=== PATIENT | male | born 1975 | race Caucasian/White ===

== ENCOUNTER 2016-09-28 11:09 | Emergency (ER) | payer OTHER ==
[~2016-09-28] VITALS: Ht 182.8 cm; Wt 102.1 kg
[~2016-09-28 11:09] MED LIST: CLINDAMYCIN150 MG PO; VITAMIN D1000 IU PO
[2016-09-28] MEDS ORDERED: HYDROXYZINE PAM25 M1 PO (11:13)
[2016-09-28] MEDS ORDERED: 'XANAX1 MG PO (11:13)
[2016-09-28] MEDS ORDERED: QUETIAPINE FUM300 M1 PO (11:13)
[2016-09-28] MEDS ORDERED: VENLAFAXINE H37.5 M5 PO (11:13)
[2016-09-28 11:42] LABS: BASO % 0.3 % (0.0-1.0); EOS # 0.1 10*3/uL (0.0-0.4); EOS % 1.1 % (1.0-4.0); HEMATOCRIT 47.5 % (42.0-52.0); LYMPH # 1.7 10*3/uL (1.3-4.4); LYMPH % 21.1 % (27.0-41.0); MEAN CELL VOLUME 92.8 fl (80.0-94.0); MEAN CORPUSCULAR HGB 31.3 pg (27.0-31.0); MEAN CORPUSCULAR HGB CONC 33.7 g/dl (33.0-37.0); MEAN PLATELET VOLUME 10.4 fl (9.6-12.3); MONO # 0.6 10*3/uL (0.1-1.0); MONO % 7.6 % (3.0-9.0); NEUT # 5.5 10*3/uL (2.3-7.9); NEUT % 69.5 % (47.0-73.0); PLATELET COUNT AUTOMATED 284 10*3/uL (130-400); RED BLOOD COUNT 5.12 10*6/uL (4.50-5.90); RED CELL DISTRI WIDTH 12.1 % (0-14.5); WHITE BLOOD COUNT 7.9 10*3/uL (4.8-10.8)
[2016-09-28 11:51] LABS: PROTHROMBIN TIME 10.4 SECONDS (9.0-12.4)
[2016-09-28 11:58] LABS: ALBUMIN 3.6 gm/dl (3.1-4.5); ALKALINE PHOSPHATASE 88 U/L (45-117); BILIRUBIN, TOTAL 0.5 mg/dl (0.2-1.0); BUN 14 mg/dl (7-24); CARBON DIOXIDE 26 mmol/L (21-32); CHLORIDE 109 mmol/L (98-107); CPK 117 U/L (39-308); EST GLOM FILT AFRICAN AMERICAN > 60 ml/min; GLUCOSE 97 mg/dL (65-99); POTASSIUM 4.2 mmol/L (3.5-5.1); SGOT/AST 14 IU/L (3-35); SGPT/ALT 18 U/L (12-78); SODIUM 141 mmol/L (136-145); TOTAL PROTEIN 7.3 gm/dL (6.4-8.2)
[2016-09-28 11:59] LABS: CKMB 0.6 ng/ml (0.5-3.6)
[2016-09-28 12:07] LABS: C-REACTIVE PROTEIN < 0.29 MG/DL (0-0.3); TROPONIN I < 0.015 ng/ml (<0.045)
[2016-09-28 13:37] LABS: BILIRUBIN NEGATIVE (NEGATIVE); BLOOD 1+ (NEGATIVE); CLARITY CLEAR (CLEAR); COLOR YELLOW (YELLOW); GLUCOSE NEGATIVE (NEGATIVE); KETONE NEGATIVE (NEGATIVE); LEUKO ESTERASE NEGATIVE (NEGATIVE); NITRITE NEGATIVE (NEGATIVE); PROTEIN NEGATIVE (NEGATIVE); UROBILINOGEN 0.2 E.U./dl (0.2-1.0)
[2016-09-28 13:42] LABS: BACTERIA TRACE
[2016-09-28 13:43] LABS: EPITHELIAL CELLS 0-2; RBC 21-30 rbc/hpf (0-2); WBC 0-2 wbc/hpf (0-5)
[2016-09-28] MEDS ORDERED: BACTRIM 400 MG-1 TAB PO (14:23)
[2016-09-28] MEDS ORDERED: KETOROLAC10 MG PO (14:23)
== END 2016-09-28 14:49 | disposition home or self-care (01) ==
LOC: ED 11:09
PROVIDERS: Internal Medicine
DX: B34.9 Viral infection, unspecified (principal); R63.0 Anorexia; R11.0 Nausea; R19.7 Diarrhea, unspecified; R53.1 Weakness; R42 Dizziness and giddiness; R10.12 Left upper quadrant pain; R68.83 Chills (without fever); F17.200 Nicotine dependence, unspecified, uncomplicated; Z79.899 Other long term (current) drug therapy

== ENCOUNTER → 2017-01-19 | Outpatient (CLI) | payer OTHER ==
[~2017-01-19] MED LIST changes: +'XANAX1 MG PO; +BACTRIM 400 MG-1 TAB PO; +HYDROXYZINE PAM25 M1 PO; +KETOROLAC10 MG PO; +QUETIAPINE FUM300 M1 PO; +VENLAFAXINE H37.5 M5 PO
[2017-01-19 21:13] LABS: ALBUMIN 4.2 gm/dl (3.1-4.5); BILIRUBIN, DIRECT 0.1 mg/dL (0.0-0.2); TOTAL PROTEIN 7.6 gm/dL (6.4-8.2)
== END | disposition home or self-care (01) ==
LOC: LAB 20:12
PROVIDERS: Internal Medicine Gastroenterology
DX: Z11.59 Encounter for screening for other viral diseases (principal); R10.11 Right upper quadrant pain

== ENCOUNTER → 2017-03-03 | Outpatient (CLI) | payer OTHER | END | disposition home or self-care (01) | LOC: LAB 10:52 | DX: E29.1 Testicular hypofunction (principal) ==

== ENCOUNTER 2017-04-09 15:45 | Emergency (ER) | payer OTHER ==
[~2017-04-09] VITALS: Ht 182.8 cm; Wt 107.5 kg
[2017-04-09] MEDS ORDERED: CYCLOBENZAPRINE5 M3 PO (19:33)
== END 2017-04-09 20:01 | disposition home or self-care (01) ==
LOC: ED 15:45
DX: S16.1XXA Strain of muscle, fascia and tendon at neck level, initial encounter (principal); S70.01XA Contusion of right hip, initial encounter; S40.011A Contusion of right shoulder, initial encounter; F10.10 Alcohol abuse, uncomplicated; Z79.899 Other long term (current) drug therapy; V43.12XA Car passenger injured in collision with other type car in nontraffic accident, initial encounter; Y93.89 Activity, other specified; Y92.89 Other specified places as the place of occurrence of the external cause; Y99.8 Other external cause status

== ENCOUNTER → 2018-05-04 | Outpatient (CLI) | payer OTHER ==
[~2018-05-04] MED LIST changes: +CYCLOBENZAPRINE5 M3 PO; +MEDROL DOSEPAK4 MG PO; +NAPROSYN500 MG PO; +PREDNISONE20 M1 PO; +PROAIR HFA8.5 GM INH; +ROBAXIN500 M1 PO; +TESSALON PERLE100 M1 PO; +ZITHROMAX250 MG PO; +ZOFRAN4 MG PO
== END | disposition home or self-care (01) ==
LOC: US 16:13
DX: M25.571 Pain in right ankle and joints of right foot (principal); M25.572 Pain in left ankle and joints of left foot; R60.0 Localized edema

== ENCOUNTER 2018-05-27 17:37 | Emergency (ER) | payer OTHER ==
[~2018-05-27] VITALS: Wt 115.7 kg
[~2018-05-27 17:37] MED LIST changes: -PREDNISONE20 M1 PO; -PROAIR HFA8.5 GM INH; -TESSALON PERLE100 M1 PO; -ZITHROMAX250 MG PO; -ZOFRAN4 MG PO
[2018-05-27 18:39] LABS: BASO % 0.3 % (0.0-1.0); EOS # 0.1 10*3/uL (0.0-0.4); EOS % 0.9 % (1.0-4.0); HEMATOCRIT 49.1 % (42.0-52.0); HEMOGLOBIN 16.8 g/dl (14.0-18.0); LYMPH # 2.2 10*3/uL (1.3-4.4); LYMPH % 20.6 % (27.0-41.0); MEAN CELL VOLUME 95.2 fl (80.0-94.0); MEAN CORPUSCULAR HGB 32.6 pg (27.0-31.0); MEAN CORPUSCULAR HGB CONC 34.2 g/dl (33.0-37.0); MEAN PLATELET VOLUME 10.9 fl (9.6-12.3); MONO # 0.9 10*3/uL (0.1-1.0); NEUT # 7.4 10*3/uL (2.3-7.9); NEUT % 69.7 % (47.0-73.0); PLATELET COUNT AUTOMATED 251 10*3/uL (130-400); RED BLOOD COUNT 5.16 10*6/uL (4.50-5.90); RED CELL DISTRI WIDTH 12.4 % (0-14.5); WHITE BLOOD COUNT 10.7 10*3/uL (4.8-10.8)
[2018-05-27 19:09] LABS: ALBUMIN 3.3 gm/dl (3.1-4.5); ALKALINE PHOSPHATASE 68 U/L (45-117); BUN 11 mg/dl (7-24); CHLORIDE 107 mmol/L (98-107); CREATININE 1.03 mg/dL (0.70-1.30); POTASSIUM 3.8 mmol/L (3.5-5.1); SGOT/AST 23 IU/L (3-35); SGPT/ALT 43 U/L (12-78); SODIUM 141 mmol/L (136-145); TOTAL PROTEIN 6.9 gm/dL (6.4-8.2)
[2018-05-27 19:12] LABS: LIPASE 93 U/L (73-393)
[2018-05-27] MEDS ORDERED: TESSALON PERLE100 M1 PO (19:52)
[2018-05-27] MEDS ORDERED: ZOFRAN4 MG PO (19:52)
[2018-05-27] MEDS ORDERED: PROAIR HFA8.5 GM INH (19:52)
[2018-05-27] MEDS ORDERED: PREDNISONE20 M1 PO (19:53)
[2018-05-27] MEDS ORDERED: ZITHROMAX250 MG PO (19:53)
== END 2018-05-27 20:08 | disposition home or self-care (01) ==
LOC: ED 17:37
PROVIDERS: Physician Assistant
DX: B34.9 Viral infection, unspecified (principal); J20.9 Acute bronchitis, unspecified; F17.200 Nicotine dependence, unspecified, uncomplicated; Z88.0 Allergy status to penicillin; Z88.6 Allergy status to analgesic agent; Z79.899 Other long term (current) drug therapy; Z79.2 Long term (current) use of antibiotics

== ENCOUNTER 2019-03-01 14:45 | Emergency (ER) | payer OTHER ==
[~2019-03-01] VITALS: Ht 182.8 cm; Wt 95.3 kg
[~2019-03-01 14:45] MED LIST changes: +PREDNISONE20 M1 PO; +PROAIR HFA8.5 GM INH; +TESSALON PERLE100 M1 PO; +ZITHROMAX250 MG PO; +ZOFRAN4 MG PO
[2019-03-01] MEDS ORDERED: Motrin,Rufen800 MG PO (15:04)
[2019-03-01] MEDS ORDERED: CLINDAMYCIN HC300 MG PO (15:05)
[2019-03-02] MEDS ORDERED: XANAX1 MG PO (16:48)
[2019-03-02] MEDS ORDERED: MINIPRESS5 M1 PO (16:55)
== END 2019-03-01 15:29 | disposition home or self-care (01) ==
LOC: ED 14:45
DX: K02.9 Dental caries, unspecified (principal); Z88.0 Allergy status to penicillin; Z88.6 Allergy status to analgesic agent; Z88.8 Allergy status to other drugs, medicaments and biological substances; Z79.899 Other long term (current) drug therapy; Z79.2 Long term (current) use of antibiotics

== ENCOUNTER 2019-03-02 16:29 | Emergency (ER) | payer MEDICAID ==
[~2019-03-02] VITALS: Wt 88.0 kg
[~2019-03-02 16:29] MED LIST changes: +CLINDAMYCIN HC300 MG PO; +Motrin,Rufen800 MG PO
[2019-03-02] MEDS ORDERED: XANAX1 MG PO (16:48)
[2019-03-02] MEDS ORDERED: MINIPRESS5 M1 PO (16:55)
== END 2019-03-02 17:15 | disposition home or self-care (01) ==
LOC: ED 16:29
DX: F43.10 Post-traumatic stress disorder, unspecified (principal); F41.1 Generalized anxiety disorder; Z76.0 Encounter for issue of repeat prescription; I10 Essential (primary) hypertension; G40.909 Epilepsy, unspecified, not intractable, without status epilepticus; Z88.0 Allergy status to penicillin; Z88.6 Allergy status to analgesic agent; Z88.8 Allergy status to other drugs, medicaments and biological substances; Z79.899 Other long term (current) drug therapy; Z79.2 Long term (current) use of antibiotics

== ENCOUNTER 2019-03-08 06:53 | Emergency (ER) | payer MEDICAID ==
[~2019-03-08] VITALS: Ht 182.8 cm; Wt 95.3 kg
[~2019-03-08 06:53] MED LIST changes: +MINIPRESS5 M1 PO; +XANAX1 MG PO
[2019-03-08] MEDS ORDERED: XANAX1 MG PO (08:16)
== END 2019-03-08 07:48 | disposition home or self-care (01) ==
LOC: ED 06:53
DX: F41.9 Anxiety disorder, unspecified (principal); I10 Essential (primary) hypertension; Z76.0 Encounter for issue of repeat prescription; Z88.0 Allergy status to penicillin; Z88.6 Allergy status to analgesic agent; Z88.8 Allergy status to other drugs, medicaments and biological substances

== ENCOUNTER 2019-03-19 15:29 | Emergency (ER) | payer OTHER ==
[~2019-03-19] VITALS: Ht 182.9 cm; Wt 99.8 kg
[2019-03-19] MEDS ORDERED: NORCO 5-325 TA1 EACH PO (17:51)
== END 2019-03-19 18:10 | disposition home or self-care (01) ==
LOC: ED 15:29
DX: S22.31XA Fracture of one rib, right side, initial encounter for closed fracture (principal); I10 Essential (primary) hypertension; Z87.891 Personal history of nicotine dependence; Z88.0 Allergy status to penicillin; Z88.6 Allergy status to analgesic agent; Z79.899 Other long term (current) drug therapy; W01.198A Fall on same level from slipping, tripping and stumbling with subsequent striking against other object, initial encounter; Y93.89 Activity, other specified; Y92.89 Other specified places as the place of occurrence of the external cause; Y99.8 Other external cause status

== ENCOUNTER 2020-03-02 11:31 | Emergency (ER) | payer OTHER ==
[~2020-03-02 11:31] MED LIST changes: +NORCO 5-325 TA1 EACH PO
[2020-03-02] MEDS ORDERED: PREDNISONE20 M1 PO (14:32)
[2020-03-02] MEDS ORDERED: ROBAXIN-750750 MG PO (14:32)
[2020-03-02] MEDS ORDERED: PROVENTIL HFA6.7 GM INH (14:32)
[2020-03-02] MEDS ORDERED: SEPTDS PO (16:55)
== END 2020-03-02 17:12 | disposition home or self-care (01) ==
LOC: ED 11:31
DX: S13.9XXA Sprain of joints and ligaments of unspecified parts of neck, initial encounter (principal); S33.5XXA Sprain of ligaments of lumbar spine, initial encounter; J32.9 Chronic sinusitis, unspecified; V89.2XXA Person injured in unspecified motor-vehicle accident, traffic, initial encounter; Y93.89 Activity, other specified; Y92.89 Other specified places as the place of occurrence of the external cause; Y99.8 Other external cause status

== ENCOUNTER → 2020-04-12 | Outpatient (CLI) | payer OTHER ==
[~2020-04-12] MED LIST changes: +PROVENTIL HFA6.7 GM INH; +ROBAXIN-750750 MG PO; +SEPTDS PO
[2020-04-12 15:11] LABS: BASO % 0.2 % (0.0-1.0); EOS # 0.3 10*3/uL (0.0-0.4); EOS % 2.7 % (1.0-4.0); HEMATOCRIT 44.1 % (42.0-52.0); LYMPH # 2.4 10*3/uL (1.3-4.4); LYMPH % 24.3 % (27.0-41.0); MEAN CELL VOLUME 93.6 fl (80.0-94.0); MEAN CORPUSCULAR HGB 31.2 pg (27.0-31.0); MEAN CORPUSCULAR HGB CONC 33.3 g/dl (33.0-37.0); MEAN PLATELET VOLUME 10.3 fl (9.6-12.3); MONO # 0.7 10*3/uL (0.1-1.0); MONO % 7.4 % (3.0-9.0); NEUT # 6.3 10*3/uL (2.3-7.9); NEUT % 65.2 % (47.0-73.0); PLATELET COUNT AUTOMATED 242 10*3/uL (130-400); RED BLOOD COUNT 4.71 10*6/uL (4.50-5.90); WHITE BLOOD COUNT 9.7 10*3/uL (4.8-10.8)
[2020-04-12 15:39] LABS: BUN 15 mg/dl (7-24); CHLORIDE 104 mmol/L (98-107); POTASSIUM 4.2 mmol/L (3.5-5.1); SGOT/AST 27 IU/L (3-35); SODIUM 137 mmol/L (136-145)
[2020-04-12 15:45] LABS: ALKALINE PHOSPHATASE 72 U/L (45-117); CHOLESTEROL 208 mg/dL (<200); CREATININE 0.93 mg/dL (0.70-1.30); FREE T4 0.88 ng/dl (0.76-1.46); HDL CHOLESTEROL 41 mg/dl (40-60); LDL CHOLESTEROL 108 mg/dL (9-159); SGPT/ALT 52 U/L (12-78); TRIGLYCERIDES 295 mg/dl (<150); VLDL CHOLESTEROL 59 mg/dL (6-40)
[2020-04-12 16:20] LABS: VITAMIN D, 25-HYDROXY 13.7 ng/mL (30-100)
== END | disposition home or self-care (01) ==
LOC: LAB 14:03
PROVIDERS: ATTEND Internal Medicine
DX: Z12.5 Encounter for screening for malignant neoplasm of prostate (principal); E55.9 Vitamin D deficiency, unspecified; I10 Essential (primary) hypertension; Z00.00 Encounter for general adult medical examination without abnormal findings; Z13.1 Encounter for screening for diabetes mellitus; Z13.220 Encounter for screening for lipoid disorders; Z13.21 Encounter for screening for nutritional disorder

== ENCOUNTER 2020-05-24 09:37 | Emergency (ER) | payer OTHER ==
[~2020-05-24] VITALS: Ht 182.8 cm; Wt 113.4 kg
[2020-05-24 10:21] LABS: BASO % 0.3 % (0.0-1.0); EOS # 0.1 10*3/uL (0.0-0.4); EOS % 1.5 % (1.0-4.0); HEMATOCRIT 49.3 % (42.0-52.0); LYMPH # 1.7 10*3/uL (1.3-4.4); LYMPH % 19.7 % (27.0-41.0); MEAN CELL VOLUME 93.2 fl (80.0-94.0); MEAN CORPUSCULAR HGB 31.9 pg (27.0-31.0); MEAN CORPUSCULAR HGB CONC 34.3 g/dl (33.0-37.0); MEAN PLATELET VOLUME 9.7 fl (9.6-12.3); MONO # 0.7 10*3/uL (0.1-1.0); MONO % 8.2 % (3.0-9.0); NEUT # 6.1 10*3/uL (2.3-7.9); NEUT % 69.5 % (47.0-73.0); PLATELET COUNT AUTOMATED 271 10*3/uL (130-400); RED BLOOD COUNT 5.29 10*6/uL (4.50-5.90); RED CELL DISTRI WIDTH 12.7 % (0-14.5); WHITE BLOOD COUNT 8.7 10*3/uL (4.8-10.8)
[2020-05-24 10:37] LABS: ALBUMIN 4.1 gm/dl (3.1-4.5); ALKALINE PHOSPHATASE 70 U/L (45-117); BUN 9 mg/dl (7-24); CHLORIDE 105 mmol/L (98-107); LIPASE 184 U/L (73-393); POTASSIUM 3.9 mmol/L (3.5-5.1); SGOT/AST 43 IU/L (3-35); SGPT/ALT 50 U/L (12-78); SODIUM 139 mmol/L (136-145); TOTAL PROTEIN 7.6 gm/dL (6.4-8.2)
[2020-05-24 11:11] LABS: BILIRUBIN Negative (Negative); BLOOD Negative (Negative); CLARITY Clear (Clear); COLOR Yellow (Yellow); GLUCOSE Negative (Negative); KETONE Negative (Negative); LEUKO ESTERASE Negative (Negative); NITRITE Negative (Negative); PH 7.5 (4.5-8.0)
== END 2020-05-24 12:41 | disposition home or self-care (01) ==
LOC: ED 09:37
PROVIDERS: Emergency Medicine
DX: K42.9 Umbilical hernia without obstruction or gangrene (principal); R10.31 Right lower quadrant pain; Z88.0 Allergy status to penicillin; Z88.6 Allergy status to analgesic agent; Z79.899 Other long term (current) drug therapy; Z87.442 Personal history of urinary calculi

== ENCOUNTER 2021-10-27 11:00 | Emergency (ER) | payer OTHER ==
[~2021-10-27] VITALS: Ht 177.8 cm; Wt 99.8 kg
[2021-10-27] MEDS ORDERED: CLINDAMYCIN HC300 MG PO (11:33)
== END 2021-10-27 11:39 | disposition home or self-care (01) ==
LOC: ED 11:00
DX: K04.7 Periapical abscess without sinus (principal); Z88.0 Allergy status to penicillin; Z88.6 Allergy status to analgesic agent; Z79.899 Other long term (current) drug therapy; Z79.2 Long term (current) use of antibiotics

== ENCOUNTER 2021-12-03 10:40 | Emergency (ER) | payer OTHER ==
[~2021-12-03] VITALS: Ht 182.8 cm; Wt 106.6 kg
[2021-12-03] MEDS ORDERED: MINIPRESS2 M1 PO (10:43)
[2021-12-03] MEDS ORDERED: BUSPAR15 MG PO (10:43)
[2021-12-03] MEDS ORDERED: BENZONATATE100 M1 PO (14:11)
[2021-12-03] MEDS ORDERED: MEDROL DOSEPAK4 MG PO (14:11)
== END 2021-12-03 14:19 | disposition home or self-care (01) ==
LOC: ED 10:40
DX: J40 Bronchitis, not specified as acute or chronic (principal); Z20.822 Contact with and (suspected) exposure to COVID-19; Z88.6 Allergy status to analgesic agent; Z88.8 Allergy status to other drugs, medicaments and biological substances; Z79.899 Other long term (current) drug therapy